=== PATIENT | male | born 1940 | race Caucasian/White ===

== ENCOUNTER 2019-01-20 07:38 | Inpatient (IN) | payer MEDICARE, BC ==
[~2019-01-20] VITALS: Ht 170.2 cm; Wt 77.5 kg
--- NOTE | 2019-01-20 07:58 | NUR ---
PT TO ER RM 3. PT HAS C/O INABLILITY TO URINATE. "JUST BLOOD COMES OUT" SYMPTOMS BEGAN 01/19/19 IN THE AM. PT DOES HAVE SOME ABDOMINAL DISCOMFORT WELL. PT DENIES CP, SOB, N/V, SUGGS, DIZZINESS. PA AT BEDSIDE TO EXAMINE PT. ALSO PRESENT AT BEDSIDE.
[2019-01-20] MEDS ORDERED: TAMS-11 PO (08:10)
[2019-01-20] MEDS ORDERED: BENA40TA3 PO (08:10)
[2019-01-20 08:23] LABS: BASOPHILS # (AUTO) 0.01 x10^3/uL (0-0.1); BASOPHILS % (AUTO) 0 % (0-1); EOSINOPHILS % (AUTO) 0 % (1-7); LYMPHOCYTES # (AUTO) 0.35 x10^3/uL (1-3.4); LYMPHOCYTES % (AUTO) 4 % (22-44); MD NO; MEAN CORPUSCULAR HEMOGLOBIN 29.2 pg (27.5-34.5); MEAN CORPUSCULAR HGB CONC 32.2 g/dL (33.2-36.2); MEAN CORPUSCULAR VOLUME 90.6 fL (81-97); MEAN PLATELET VOLUME 8.3 fL (7.4-10.4); MONOCYTES # (AUTO) 0.25 x10^3/uL (0.2-0.8); MONOCYTES % (AUTO) 3 % (2-9); NEUTROPHILS % (AUTO) 93 % (42-75); PLATELET COUNT 164 x10^3/uL (130-400); RED BLOOD COUNT 4.48 x10^6/uL (4.38-5.82); RED CELL DISTRIBUTION WIDTH 15.1 % (9.4-14.8)
[2019-01-20 08:30] LABS: ALANINE AMINOTRANSFERASE 22 U/L (12-78); ALBUMIN 3.8 g/dL (3.4-5.0); ANION GAP 8 mmol/L (5-15); CALCIUM 8.7 mg/dL (8.5-10.1); CHLORIDE 112 mmol/L (98-107); CREATININE 1.11 mg/dL (0.7-1.3)
[2019-01-20 08:32] LABS: ALKALINE PHOSPHATASE 89 U/L (45-117); BILIRUBIN,TOTAL 0.5 mg/dL (0.2-1.0); TOTAL PROTEIN 7.1 g/dL (6.4-8.2)
--- NOTE | 2019-01-20 09:37 | NUR ---
LATE ENTRY FOR 0915 PT RESTING ON GURNEY. NO ACUTE DISTRESS NOTED. BEDSIDE
--- NOTE | 2019-01-20 09:39 | NUR ---
LATE ENTRY FOR 0900a RECEIVED BEDSIDE REPORT FROM LÓPEZ BARRIOS.
--- NOTE | 2019-01-20 10:01 | NUR ---
Fuad paz in ED - 01/20/19 at 1008 by DAMION SPOKE WITH JOSE AT [facility]. GAVE HER REPORT. SHE STATES SHE WILL GIVE REPORT TO
--- NOTE | 2019-01-20 10:14 | NUR ---
RECEIVED REPORT FROM MOHIT Sanchez RN. AFTER A FEW FAILED ATTEMPTS TO PL[facility] UROLOGY TO BE PAGED. PT HAS HX OF NEEDING UROLOGY TO PLACE [facility] IN THE PAST.
[2019-01-20] MEDS ORDERED: CEFAZOLIN 1,000 MG ONE (10:46)
--- NOTE | 2019-01-20 11:30 | NUR ---
PT SLEEPING IN NAD. VSS. WAITING FOR UROLOGIST TO SEE PT.
--- NOTE | 2019-01-20 11:55 | NUR ---
UROLOGIST AT BEDSIDE.
--- NOTE | 2019-01-20 12:44 | NUR ---
DR. JORGENSEN AT BEDSIDE. PT TO GO TO SURGERY FOR PLACEMENT OF WEEMS. PT AWARE OF NPO STATUS NOW. PT RESTING IN NAD.
[2019-01-20] MEDS ORDERED: ONDANSETRON ODT 4 MG PO PRN (13:00)
[2019-01-20] MEDS ORDERED: LABETALOL 5MG/ML, 20ML IVPush PRN (13:00)
[2019-01-20] MEDS ORDERED: POLYETHYLENE GLYCOL 17 GM PACKET PO PRN (13:00)
[2019-01-20] MEDS ORDERED: ONDANSETRON 2MG/ML, 2ML IVPush PRN (13:00)
[2019-01-20 13:36] LABS: FREE T4 (FREE THYROXINE) 0.93 ng/dL (0.76-1.46)
[2019-01-20] MEDS ORDERED: FENTANYL PF 250 MCG/5ML ONE (14:37)
[2019-01-20] MEDS ORDERED: ROCURONIUM 10MG/ML,5ML ONE (14:38)
[2019-01-20] MEDS ORDERED: SUCCINYLCHOLINE 20 MG/ML, 10ML ONE (14:38)
[2019-01-20] MEDS ORDERED: DEXAMETHASONE 4 MG/ML, 1ML ONE ×2 (14:38→14:39)
[2019-01-20] MEDS ORDERED: LIDOCAINE 2%, 6 ML JEL.PF.APP MM ONE (14:38)
[2019-01-20] MEDS ORDERED: ONDANSETRON 2MG/ML, 2ML ONE ×2 (14:38→14:39)
[2019-01-20] MEDS ORDERED: PROPOFOL 10 MG/ML, 20ML ONE (14:38)
[2019-01-20 14:47] LABS: CULTURE INDICATED? YES; MICROSCOPIC INDICATED
[2019-01-20] MEDS ORDERED: DIAZEPAM 5 MG/ML, 2ML IVPush PRN (16:00)
[2019-01-20] MEDS ORDERED: OXYcodone 5 MG/5 ML ORAL.SOL UDC PO PRN (16:00)
[2019-01-20] MEDS ORDERED: MEPERIDINE/PF 25MG/0.5ML IVPush PRN (16:00)
[2019-01-20] MEDS ORDERED: HYDROmorphone 2 MG/ML, 1ML IVPush PRN (16:00)
[2019-01-20] MEDS ORDERED: hydrALAzine 20 MG/ML, 1ML IV PRN (16:00)
[2019-01-20] MEDS ORDERED: EPHEDRINE 50 MG/ML, 1ML IVPush PRN (16:00)
[2019-01-20] MEDS ORDERED: ONDANSETRON ODT 8 MG PO PRN (16:00)
[2019-01-20] MEDS ORDERED: LABETALOL 5MG/ML, 20ML IV PRN (16:00)
[2019-01-20] MEDS ORDERED: ONDANSETRON 2MG/ML, 2ML IV PRN (16:00)
[2019-01-20] MEDS ORDERED: PROMETHAZINE 12.5 MG SUPP PR PRN (16:00)
[2019-01-20] MEDS ORDERED: PROMETHAZINE 25 MG/ML, 1ML IV PRN (16:00)
[2019-01-20] MEDS ORDERED: MORPHINE SULFATE 4 MG/ML, 1ML IVPush PRN (16:00)
[2019-01-20] MEDS ORDERED: FENTANYL PF 100 MCG/2ML IV PRN (16:00)
[2019-01-20] MEDS ORDERED: MIDAZOLAM 1 MG/ML, 2ML IV PRN (16:00)
[2019-01-20] MEDS ORDERED: ALBUTEROL SULFATE 2.5 MG/3 ML NPPB PRN (16:00)
[2019-01-20] MEDS ORDERED: HALOPERIDOL 5 MG/ML IV PRN (16:00)
[2019-01-20 19:07] VITALS: BP 130/79
[2019-01-20] MEDS: D5%-0.45% NACL 1,000 ML IV SCH (19:24)
[2019-01-20] MEDS: CEFTRIAXONE PMX 1GM/50ML 50 ML IV SCH (19:24)
[2019-01-21 00:16] VITALS: BP 116/63
[2019-01-21] MEDS: D5%-0.45% NACL 1,000 ML IV SCH ×3 (02:45→17:43)
[2019-01-21 04:26] VITALS: BP 121/66
[2019-01-21 07:27] LABS: MEAN CORPUSCULAR HGB CONC 31.9 g/dL (33.2-36.2); MEAN PLATELET VOLUME 8.3 fL (7.4-10.4); PLATELET COUNT 154 x10^3/uL (130-400); RED BLOOD COUNT 4.27 x10^6/uL (4.38-5.82); RED CELL DISTRIBUTION WIDTH 15.2 % (9.4-14.8)
[2019-01-21] MEDS ORDERED: PANTOPRAZOLE 40 MG IV IVPush SCH (07:30)
[2019-01-21 07:33] LABS: ALBUMIN 2.9 g/dL (3.4-5.0); ANION GAP 6 mmol/L (5-15); CALCIUM 7.9 mg/dL (8.5-10.1); CHLORIDE 111 mmol/L (98-107)
[2019-01-21 07:45] LABS: ALANINE AMINOTRANSFERASE 19 U/L (12-78); ALKALINE PHOSPHATASE 76 U/L (45-117); BILIRUBIN,TOTAL 0.4 mg/dL (0.2-1.0); CREATININE 1.03 mg/dL (0.7-1.3); THYROID STIMULATING HORMONE 0.328 mIU/L (0.358-3.740)
[2019-01-21 08:15] LABS: BASOPHILS # (AUTO) 0.02 x10^3/uL (0-0.1); BASOPHILS % (AUTO) 0 % (0-1); EOSINOPHILS % (AUTO) 0 % (1-7); LYMPHOCYTES # (AUTO) 0.39 x10^3/uL (1-3.4); LYMPHOCYTES % (AUTO) 3 % (22-44); MD SCAN; MONOCYTES % (AUTO) 5 % (2-9); NEUTROPHILS # (AUTO) 10.56 x10^3/uL (1.8-6.8); NEUTROPHILS % (AUTO) 91 % (42-75)
[2019-01-21 08:30] VITALS: BP 114/52
[2019-01-21] MEDS ORDERED: PANTOPROZOLE 40MG TABLET ONE (08:45)
[2019-01-21] MEDS: BENAZEPRIL 20 MG TABLET PO SCH (08:46)
[2019-01-21] MEDS: SENNA/DOCUSATE TABLET PO SCH (08:47)
[2019-01-21] MEDS: TAMSULOSIN 0.4 MG CAP.ER.24H PO SCH (08:47)
[2019-01-21] MEDS: PANTOPROZOLE 40MG TABLET PO SCH (08:47)
[2019-01-21 14:59] VITALS: BP 108/56
[2019-01-21 19:43] VITALS: BP 117/69
[2019-01-21] MEDS: CEFTRIAXONE PMX 1GM/50ML 50 ML IV SCH (20:08)
[2019-01-22 00:32] VITALS: BP 125/79
[2019-01-22] MEDS: D5%-0.45% NACL 1,000 ML IV SCH ×2 (02:28→11:30)
[2019-01-22] MEDS: PANTOPROZOLE 40MG TABLET PO SCH (06:07)
[2019-01-22 06:08] LABS: BASOPHILS # (AUTO) 0.11 x10^3/uL (0-0.1); BASOPHILS % (AUTO) 1 % (0-1); EOSINOPHILS # (AUTO) 0.44 x10^3/uL (0-0.4); EOSINOPHILS % (AUTO) 5 % (1-7); LYMPHOCYTES # (AUTO) 0.58 x10^3/uL (1-3.4); LYMPHOCYTES % (AUTO) 7 % (22-44); MD NO; MEAN CORPUSCULAR HGB CONC 32.6 g/dL (33.2-36.2); MEAN CORPUSCULAR VOLUME 92.1 fL (81-97); MEAN PLATELET VOLUME 9.1 fL (7.4-10.4); MONOCYTES # (AUTO) 0.76 x10^3/uL (0.2-0.8); MONOCYTES % (AUTO) 9 % (2-9); NEUTROPHILS # (AUTO) 6.37 x10^3/uL (1.8-6.8); NEUTROPHILS % (AUTO) 77 % (42-75); PLATELET COUNT 149 x10^3/uL (130-400); RED BLOOD COUNT 4.14 x10^6/uL (4.38-5.82); RED CELL DISTRIBUTION WIDTH 15.6 % (9.4-14.8)
[2019-01-22 06:24] LABS: CHLORIDE 113 mmol/L (98-107)
[2019-01-22 06:30] LABS: ALANINE AMINOTRANSFERASE 14 U/L (12-78); ALBUMIN 2.8 g/dL (3.4-5.0); ALKALINE PHOSPHATASE 81 U/L (45-117); ANION GAP 6 mmol/L (5-15); BILIRUBIN,TOTAL 0.1 mg/dL (0.2-1.0); CALCIUM 8.1 mg/dL (8.5-10.1); TOTAL PROTEIN 5.8 g/dL (6.4-8.2)
[2019-01-22 07:58] VITALS: BP 142/70
[2019-01-22] MEDS: SENNA/DOCUSATE TABLET PO SCH (08:02)
[2019-01-22] MEDS: TAMSULOSIN 0.4 MG CAP.ER.24H PO SCH (08:02)
[2019-01-22] MEDS: BENAZEPRIL 20 MG TABLET PO SCH (08:02)
[2019-01-22] MEDS ORDERED: CEFD300C37 PO (11:15)
[2019-01-22 13:16] VITALS: BP 116/75
== END 2019-01-22 12:40 | disposition home or self-care (01) | DRG 669 ==
LOC: ED 09:38 → EDIP 12:39 → 4NOR 17:20
PROVIDERS: ADMIT Internal Medicine; ATTEND Internal Medicine
PROC: 0TCB8ZZ Extirpation of Matter from Bladder, Via Natural or Artificial Opening Endoscopic (ICD-10-PCS; 2019-01-20)
PROC: 0T7D8ZZ Dilation of Urethra, Via Natural or Artificial Opening Endoscopic (ICD-10-PCS; 2019-01-20)
PROC: 0T5B8ZZ Destruction of Bladder, Via Natural or Artificial Opening Endoscopic (ICD-10-PCS; principal; 2019-01-20 15:00)
DX: N35.912 Unspecified bulbous urethral stricture, male (principal); N30.41 Irradiation cystitis with hematuria; D64.9 Anemia, unspecified; I10 Essential (primary) hypertension; N39.490 Overflow incontinence; Z85.46 Personal history of malignant neoplasm of prostate; Z87.891 Personal history of nicotine dependence; Z92.3 Personal history of irradiation; R33.8 Other retention of urine; R31.0 Gross hematuria
CPT/HCPCS: 36415; 76770; 80053; 81001; 83735; 84100; 84439; 84443; 85014; 85018; 85025; 87040; 87086; 93005; 99285; G0378; J0690; J0696; J1100; J2405; J2704; J3010; C1769; J0330

== ENCOUNTER 2019-03-02 12:50 | Inpatient (IN) | payer MEDICARE, BC ==
[~2019-03-02] VITALS: Ht 170.2 cm; Wt 81.0 kg
[2019-03-06 07:46] VITALS: BP 102/64
== END 2019-03-06 10:40 | disposition home or self-care (01) | DRG 371 ==
LOC: ED 15:01 → EDIP 15:02 → ED 15:32 → 4NOR 16:20
PROVIDERS: ADMIT Hospitalist; ATTEND Hospitalist
DX: A04.72 Enterocolitis due to Clostridium difficile, not specified as recurrent (principal); N17.0 Acute kidney failure with tubular necrosis; D64.9 Anemia, unspecified; E86.0 Dehydration; D72.825 Bandemia; I10 Essential (primary) hypertension; N32.89 Other specified disorders of bladder; Z85.46 Personal history of malignant neoplasm of prostate; Z87.440 Personal history of urinary (tract) infections; Z87.891 Personal history of nicotine dependence; Z92.3 Personal history of irradiation
CPT/HCPCS: 36415; 80048; 80053; 81001; 82040; 83735; 84100; 84439; 84443; 85025; 87086; 87324; 96360; 99291; G0378; J3370; J7030; J7120

== ENCOUNTER 2019-03-07 12:05 | Outpatient (CLI) | payer MEDICARE, BC | END 2019-03-07 23:59 | disposition home or self-care (01) | LOC: CFH 12:05 | PROVIDERS: ATTEND Family Medicine | DX: A41.89 Other specified sepsis (principal) | CPT/HCPCS: 36415; 71046; 80053; 81001; 85025; 87040; 87086 ==

== ENCOUNTER 2019-03-08 15:58 | Emergency (ER) | payer MEDICARE, BC ==
[~2019-03-08] VITALS: Ht 170.2 cm; Wt 77.4 kg
[2019-03-08 16:22] VITALS: BP 121/57
== END 2019-03-08 18:31 | disposition home or self-care (01) ==
LOC: ED 16:47
DX: A04.72 Enterocolitis due to Clostridium difficile, not specified as recurrent (principal); A09 Infectious gastroenteritis and colitis, unspecified; I10 Essential (primary) hypertension; Z87.891 Personal history of nicotine dependence; Z85.46 Personal history of malignant neoplasm of prostate
CPT/HCPCS: 36415; 71045; 74177; 80053; 83605; 84145; 85025; 87040; 93005; 99284; Q9967